=== PATIENT | male | born 1990 | race Caucasian/White ===

== ENCOUNTER 2019-09-27 13:33 | Emergency (ER) | payer BC ==
[~2019-09-27] VITALS: Ht 172.7 cm; Wt 90.7 kg
[2019-09-27] MEDS ORDERED: KLONOPIN0.5 MG PO (13:47)
[2019-09-27 14:40] VITALS: BP 144/78
== END 2019-09-27 14:41 | disposition home or self-care (01) ==
LOC: M.ERS 13:33
DX: S61.211A Laceration without foreign body of left index finger without damage to nail, initial encounter (principal); F41.9 Anxiety disorder, unspecified; W26.8XXA Contact with other sharp object(s), not elsewhere classified, initial encounter; Y93.89 Activity, other specified; Y92.89 Other specified places as the place of occurrence of the external cause; Y99.8 Other external cause status